=== PATIENT | female | born 1995 | race Caucasian/White ===

== ENCOUNTER 2020-11-10 10:18 | Observation (INO) | payer OTHER ==
[~2020-11-10] VITALS: Ht 165.1 cm; Wt 112.9 kg
[2020-11-10 11:23] LABS: HEMOGLOBIN 11.1 gm/dl (12.3-15.3); RED BLOOD COUNT 3.67 M/UL (4.00-5.10); WHITE BLOOD COUNT 12.4 K/UL (4.5-11.0)
[2020-11-10 11:50] LABS: BUN/CREATININE RATIO 11 (0-10)
[2020-11-10] MEDS ORDERED: ZOLOFT25 MG PO (11:52)
[2020-11-10] MEDS ORDERED: GLUCOPHAGE 500500 MG GT (11:55)
[2020-11-10] MEDS ORDERED: TRANDATE 100 M100 MG PO (11:57)
[2020-11-10] MEDS ORDERED: PRENATAL VITAM1 EAC6 PO (11:58)
[2020-11-10] MEDS ORDERED: PRILOSEC OTC20 MG PO (11:59)
[2020-11-10] MEDS ORDERED: CLARITIN10 MG PO (12:00)
[2020-11-21] MEDS ORDERED: IBUPROFEN800 MG PO (16:03)
[2020-11-21] MEDS ORDERED: HYDROCODON-ACE1 EAC4 PO (16:03)
[2020-11-21] MEDS ORDERED: DOCUSATE SODIU100 MG PO (16:03)
== END 2020-11-10 14:02 | disposition home or self-care (01) ==
LOC: GENOP 10:18 → OB 11:01
PROVIDERS: ADMIT Obstetrics & Gynecology
DX: O24.415 Gestational diabetes mellitus in pregnancy, controlled by oral hypoglycemic drugs (principal); O16.3 Unspecified maternal hypertension, third trimester; Z79.84 Long term (current) use of oral hypoglycemic drugs; Z3A.35 35 weeks gestation of pregnancy
CPT/HCPCS: 36415; 80053; 81001; 82570; 83615; 84156; 84550; 85025; G0378; G0463

== ENCOUNTER 2020-11-19 16:39 | Inpatient (IN) | payer OTHER ==
[~2020-11-19] VITALS: Ht 165.1 cm; Wt 113.4 kg
[~2020-11-19 16:39] MED LIST: CLARITIN10 MG PO; GLUCOPHAGE 500500 MG GT; PRENATAL VITAM1 EAC6 PO; PRILOSEC OTC20 MG PO; TRANDATE 100 M100 MG PO; ZOLOFT25 MG PO
[2020-11-19 17:11] LABS: HEMOGLOBIN 10.6 gm/dl (12.3-15.3); RED BLOOD COUNT 3.57 M/UL (4.00-5.10); WHITE BLOOD COUNT 11.7 K/UL (4.5-11.0)
[2020-11-19] MEDS ORDERED: LABETALOL HCL200 MG PO (17:44)
[2020-11-19] MEDS ORDERED: GLUCOPHAGE500 MG PO (17:44)
[2020-11-19] MEDS ORDERED: ZOLOFT50 MG PO (17:45)
[2020-11-19] MEDS ORDERED: PRILOSEC OTC20 MG PO (17:45)
[2020-11-19] MEDS ORDERED: CLARITIN10 M2 PO (17:45)
[2020-11-19] MEDS ORDERED: PRENATAL VITAM1 EAC8 PO (17:46)
[2020-11-19] MEDS ORDERED: FLONASE 0.05% N16 GM (17:46)
[2020-11-21 03:45] LABS: HEMOGLOBIN 8.5 gm/dl (12.3-15.3)
[2020-11-21] MEDS ORDERED: DOCUSATE SODIU100 MG PO (16:03)
[2020-11-21] MEDS ORDERED: HYDROCODON-ACE1 EAC4 PO (16:03)
[2020-11-21] MEDS ORDERED: IBUPROFEN800 MG PO (16:03)
[2020-11-23] MEDS ORDERED: LABETALOL HCL200 MG PO (14:12)
[2020-11-23] MEDS ORDERED: FERROUS SULFAT324 MG PO (14:12)
== END 2020-11-23 18:42 | disposition home or self-care (01) | DRG 807 ==
LOC: GENOP 16:39 → OB 16:49
PROVIDERS: Obstetrics & Gynecology; ADMIT Obstetrics & Gynecology
PROC: 0U7C7ZZ Dilation of Cervix, Via Natural or Artificial Opening (ICD-10-PCS; 2020-11-19)
PROC: 10E0XZZ Delivery of Products of Conception, External Approach (ICD-10-PCS; principal; 2020-11-20)
PROC: 0KQM0ZZ Repair Perineum Muscle, Open Approach (ICD-10-PCS; 2020-11-20)
PROC: 10907ZC Drainage of Amniotic Fluid, Therapeutic from Products of Conception, Via Natural or Artificial Opening (ICD-10-PCS; 2020-11-20)
DX: O13.4 Gestational [pregnancy-induced] hypertension without significant proteinuria, complicating childbirth (principal); Z37.0 Single live birth; Z3A.37 37 weeks gestation of pregnancy; O14.14 Severe pre-eclampsia complicating childbirth; O70.1 Second degree perineal laceration during delivery; O24.425 Gestational diabetes mellitus in childbirth, controlled by oral hypoglycemic drugs; O99.214 Obesity complicating childbirth; Z28.21 Immunization not carried out because of patient refusal; O62.2 Other uterine inertia; O99.02 Anemia complicating childbirth; D64.9 Anemia, unspecified
CPT/HCPCS: 36415; 81001; 82800; 82962; 83735; 85014; 85018; 85025; C9113; J0610; J2001; J2590; J2795; J3475; J7030; J7120

== ENCOUNTER 2022-06-10 12:00 | Outpatient (CLI) | payer OTHER ==
[~2022-06-10 12:00] MED LIST changes: +CLARITIN10 M2 PO; +DOCUSATE SODIU100 MG PO; +FERROUS SULFAT324 MG PO; +FLONASE 0.05% N16 GM; +GLUCOPHAGE500 MG PO; +HYDROCODON-ACE1 EAC4 PO; +IBUPROFEN800 MG PO; +LABETALOL HCL200 MG PO; +PRENATAL VITAM1 EAC8 PO; +ZOLOFT50 MG PO
== END 2022-06-10 15:05 | disposition home or self-care (01) ==
LOC: GENOP 12:00
DX: O47.03 False labor before 37 completed weeks of gestation, third trimester (principal); Z3A.28 28 weeks gestation of pregnancy
CPT/HCPCS: 81001; 82731; 84112; 96372; J0702